=== PATIENT | male | born 1950 | race Caucasian/White ===

== ENCOUNTER 2018-10-02 07:18 | Day surgery (SDC) | payer MEDICARE, OTHER ==
[~2018-10-02] VITALS: Ht 170.2 cm; Wt 89.4 kg
--- NOTE | 2018-10-02 08:04 | NUR ---
10/02/18 0804 Daxa Salter PT IS READY AND TEACHING IS DONE, IS AT BEDSIDE CALL LIGHT IN REACH.
--- NOTE | 2018-10-02 15:51 | NUR ---
10/02/18 1551 Ethan Bosch LATE ENTRY NARRATIVE PATIENT INTO SDU RESTING IN RECLINER WITH SPOUSE AT CHAIRSIDE. PATIENT VSS EXCEPT FOR HR FLUCTUATION DUE TO BIGEMINY. DR MONTENEGRO WAS AWARE OF THE BIGEMINY AND WAS MADE AWARE OF THE HR FLUCTUATION BY [facility].RXS. DR MONTENEGRO STATED THAT IF THE SDU NURSE THINKS A 12 LEAD EKG IS NEEDED THEN DO ONE. NO OTHER ORDERS OR INSTRUCTIONS WERE GIVEN BY DR MONTENEGRO AT THIS TIME. A 12 LEAD EKG WAS PERFORMED @[address] M[address]O. DR MONTENEGRO OK'D PATIENT TO GO HOME. PATIENT HAS BEEN TOLERATING PO FLUIDS WELL, PATIENT REPORTS PAIN 4/10 AND IS TOLERABLE. PATIENT VSS AND COMPARABLE TO ADMITTING BASELINE DATA. SDU VITALS STRIP PRINTED BUT MISTAKENLY THROWN AWAY. PATIENT HAS HAD URGENCY TO URINATE AND HAS VOIDED 4 TIMES DURING HIS STAY IN SDU. DISCHARGE INSTRUCTIONS REVIEWED WITH PATIENT AND SPOUSE, BOTH DENY HAVING ANY QUESTIONS AT THIS TIME. NURSE ASSISTED PATIENT WALK TO HIS RIDE HOME.
== END 2018-10-02 12:15 | disposition home or self-care (01) ==
LOC: ORSCSDS 07:18
PROVIDERS: Otolaryngology
PROC: 09TL0ZZ Resection of Nasal Turbinate, Open Approach (ICD-10-PCS; principal; 2018-10-02 08:30)
PROC: 09BM0ZZ Excision of Nasal Septum, Open Approach (ICD-10-PCS; principal; 2018-10-02 08:30)
DX: J34.2 Deviated nasal septum (principal); J34.3 Hypertrophy of nasal turbinates; J34.89 Other specified disorders of nose and nasal sinuses; R33.9 Retention of urine, unspecified
CPT/HCPCS: 87086; 93005; 93010; J1100; J2250; J2405; J2710; J3010; J7120

== ENCOUNTER → 2018-10-02 | Outpatient (CLI) | payer MEDICARE, OTHER ==
[~2018-10-02] MED LIST: ATOR40TA; ERGO50000; HYDACE5; HYDCHL25 PO; HYDMOR2; HYDMOR2 PO; JUBLIA4 ML TP; PROC5 PO; TAMS.4ER PO; TERB250; [UNRECOGNIZED DRUG - OTHER]
== END ==
LOC: LAB SHORT 16:59 → LAB EV 16:59
DX: R33.9 Retention of urine, unspecified (principal)
CPT/HCPCS: 87086

== ENCOUNTER → 2021-05-04 | Outpatient (CLI) | payer MEDICARE, OTHER | END | disposition home or self-care (01) | LOC: LAB SHORT 08:05 → LAB 08:05 | DX: B35.1 Tinea unguium (principal); L60.2 Onychogryphosis | CPT/HCPCS: 88305; 88312 ==

== ENCOUNTER 2021-07-19 09:57 | Day surgery (SDC) | payer MEDICARE, OTHER ==
[~2021-07-19] VITALS: Ht 170.2 cm; Wt 84.0 kg
[2021-07-19] MEDS ORDERED: AMLO5 (10:31)
[2021-07-19] MEDS ORDERED: Prinivil10 MG (10:32)
[2021-07-19] MEDS ORDERED: MINOCYCLINE HC100 M2 (10:32)
[2021-07-19] MEDS ORDERED: AZELASTINE137 MCG/01 (10:33)
== END 2021-07-19 12:18 | disposition home or self-care (01) ==
LOC: ORSCSDS 09:57
PROVIDERS: Internal Medicine Gastroenterology
PROC: 0DBM8ZX Excision of Descending Colon, Via Natural or Artificial Opening Endoscopic, Diagnostic (ICD-10-PCS; principal; 2021-07-19 11:30)
PROC: 0DBL8ZX Excision of Transverse Colon, Via Natural or Artificial Opening Endoscopic, Diagnostic (ICD-10-PCS; principal; 2021-07-19 11:30)
PROC: 0DBK8ZX Excision of Ascending Colon, Via Natural or Artificial Opening Endoscopic, Diagnostic (ICD-10-PCS; principal; 2021-07-19 11:30)
DX: Z12.11 Encounter for screening for malignant neoplasm of colon (principal); K57.30 Diverticulosis of large intestine without perforation or abscess without bleeding; Z86.010 Personal history of colon polyps; Z80.0 Family history of malignant neoplasm of digestive organs; D12.3 Benign neoplasm of transverse colon; D12.4 Benign neoplasm of descending colon; D37.4 Neoplasm of uncertain behavior of colon; K64.8 Other hemorrhoids; Z79.899 Other long term (current) drug therapy
CPT/HCPCS: 88305; J2704; J7120